=== PATIENT | female | born 1945 ===

== ENCOUNTER 2021-09-16 10:11 | Outpatient (CLI) | payer OTHER | END 2021-09-16 15:25 | disposition home or self-care (01) | LOC: RAD 10:11 | PROVIDERS: ATTEND Orthopaedic Surgery | DX: M77.32 Calcaneal spur, left foot (principal); M79.674 Pain in right toe(s) ==

== ENCOUNTER 2021-10-01 12:05 | Outpatient (CLI) | payer OTHER | END 2021-10-01 12:13 | disposition home or self-care (01) | LOC: RAD 12:05 | PROVIDERS: ATTEND Physical Medicine & Rehabilitation | DX: M51.37 Other intervertebral disc degeneration, lumbosacral region (principal); M54.2 Cervicalgia; M54.59 Other low back pain; M25.511 Pain in right shoulder; M75.112 Incomplete rotator cuff tear or rupture of left shoulder, not specified as traumatic; M25.512 Pain in left shoulder ==